=== PATIENT | female | born 2000 | race Caucasian/White ===

== ENCOUNTER 2022-07-23 12:06 | Emergency (ER) | payer MEDICAID ==
[~2022-07-23] VITALS: Ht 170 cm; Wt 91.0 kg
[2022-07-23] MEDS ORDERED: KETOROLAC 60 MG/2 ML VIAL IM ONE (12:30)
[2022-07-23] MEDS ORDERED: CYCL10TA25 PO (12:31)
--- NOTE | 2022-07-23 12:32 | ED Hip Pain/Injury ---
General Chief Complaint: Hip/Pelvic Problems Stated Complaint: LEFT SIDE LEG AND HIP PAIN Source: patient Exam Limitations: no limitations History of Present Illness Date Seen by Provider: Jul 23, 2022 Time Seen by Provider: 12:15 Initial Comments 21-year-old female presents for left low back pain. She states symptoms present for about a week to week and a half. No known injury. No new weakness numbness or tingling. No loss of bowel or bladder control. Allergies and Home Medications Allergies Coded Allergies: No Known Drug Allergies (Unverified , 07/23/22) Patient Home Medication List Home Medication List Reviewed: Yes Cyclobenzaprine HCl (Cyclobenzaprine HCl) 10 Mg Tablet, 10 MG PO Q6H PRN for SPASMS Prescribed by: LATASHA TALBERT MD on 07/23/22 1231 Review of Systems Constitutional: no symptoms reported EENTM: no symptoms reported Respiratory: no symptoms reported Cardiovascular: no symptoms reported Gastrointestinal: no symptoms reported Genitourinary: no symptoms reported Musculoskeletal: back pain Past Zmarxgg-Qspfsm-Uuglhu Hx Patient Social History Tobacco Use?: No Use of E-Cig and/or Vaping dev: No Substance use?: No Alcohol Use?: No Family Medical History No Pertinent Family Hx Physical Exam Vital Signs Vital Signs - First Documented 07/23/22 12:16 Temp 37.0 Pulse 71 Resp 18 B/P (MAP) 124/72 (89) Pulse Ox 97 O2 Delivery Room Air Capillary Refill : Height, Weight, BMI Height: '" Weight: lbs. oz. kg; BMI Method: General Appearance: No Apparent Distress HEENT: Normal ENT Inspection, Pharynx Normal Neck: Normal Inspection, Non Tender, Supple Cardiovascular: Regular Rate, Rhythm, No Edema, No Gallop, No JVD, No Murmur, Normal Peripheral Pulses Respiratory: Chest Non Tender, Lungs Clear, Normal Breath Sounds, No Accessory Muscle Use, No Respiratory Distress Gastrointestinal: Normal Bowel Sounds, No Organomegaly, No Pulsatile Mass, Non Tender Back: No CVA Tenderness, No Vertebral Tenderness, Other (Mild tenderness left SI joint region creatinine levels show no evidence of renal dysfunction. Rashes) Extremity: Normal Capillary Refill, Normal Inspection, Normal Range of Motion, Non Tender, No Pedal Edema Neurologic/Psychiatric: Alert, Oriented x3, No Motor/Sensory Deficits, Normal Mood/Affect Progress/Results/Core Measures Results/Orders My Orders Orders - LATASHA TALBERT DO Ketorolac Injection (Toradol Injection) (07/23/22 12:30) Vital Signs/I&O 07/23/22 07/23/22 07/23/22 12:16 12:35 12:52 Temp 37.0 37.0 37.0 Pulse 71 71 Resp 18 18 B/P (MAP) 124/72 (89) 124/72 Pulse Ox 97 97 O2 Delivery Room Air Room Air Departure Communication (Admissions) Patient is hemodynamically stable without any red flag symptoms that require imaging at this time. She will be treated conservatively with anti-inflammatory medicines, muscle relaxers and stretching exercises. Questions were sought and answered. She is comfortable agreeable current plan of care. Advised return to care if she develops any weakness in the legs, loss of bowel bladder control Impression Primary Impression: Acute left-sided low back pain Qualified Codes: M54.42 - Lumbago with sciatica, left side Disposition: 01 HOME, SELF-CARE Condition: Stable Departure-Patient Inst. Referrals: NO,LOCAL PHYSICIAN (PCP) Primary Care Physician PETE HERNANDEZ MD Patient Instructions: Low Back Pain ED Add. Discharge Instructions: You were seen in the emergency department today for low back pain. I do not think that there is any emergent cause of your pain at this time. I recommend you use anti-inflammatory medicine such as Motrin or Aleve. I also provided you with muscle relaxer medicine. This will make you drowsy) best to take this in the evening we do not have anything else to do. Perform stretching exercises daily racquetball or tennis ball as discussed in the emergency department. As discussed this will likely take another couple of weeks to fully resolve however I expect that you would get gradually better day by day. Return to the emergency department for any severe concerns. All discharge instructions reviewed with patient and/or family. Voiced understanding. Scripts Cyclobenzaprine HCl (Cyclobenzaprine HCl) 10 Mg Tablet 10 MG PO Q6H PRN for SPASMS for 7 Days, #28 TAB Prov: ALDA TALBERTALECIA Pisano DO 07/23/22 MACARENA TALBERTWaqar Pisano DO Jul 23, 2022 12:32
[2022-07-23 12:52] VITALS: BP 124/72
== END 2022-07-23 12:51 | disposition home or self-care (01) ==
LOC: ER 12:13
DX: M54.50 Low back pain, unspecified (principal)
CPT/HCPCS: 99284

== ENCOUNTER 2022-08-11 11:14 | Emergency (ER) | payer MEDICAID ==
[~2022-08-11] VITALS: Ht 170 cm; Wt 89.0 kg
[~2022-08-11 11:14] MED LIST: CYCL10TA25 PO
--- NOTE | 2022-08-11 11:48 | ED Abdominal Pain ---
General Chief Complaint: Abdominal/GI Problems Stated Complaint: LEFT HIP/LOWER ABD PAIN Nursing Triage Note: ARRIVED VIA AMBULATORY TO ROOM 07. STATES LAST WEEK SHE WAS TREATED FOR CHLAMTDIA BUT HAD SEX WITH THE SAME UNTREATED PARTNER YESTERDAY. SINCE THEN SHE HAS HAD RLQ PAIN. ALSO COMPLAINS OF CHRONIC LEFT HIP PAIN THAT SHE WOULD LIKE A MUSCLE RELAXER FOR AND SHE NEEDS A WORK NOTE. (MARGARET FRYE APRN) History of Present Illness Date Seen by Provider: Aug 11, 2022 Time Seen by Provider: 11:48 Initial Comments Patient reports that she is having lower abdominal pain for the past few days but worse today. Was seen elsewhere last week to be started on control and was told that she was positive for chlamydia. Was not having symptoms at that time. States that she was just trying to get on control. Had sex yesterday with the man who is positive for chlamydia and has not been treated for it. Sex was not protected. Denies vaginal discharge or symptoms currently. Also reports that she has been having some left hip pain for awhile and is requesting muscle relaxers for that. Also asking for a work note. Denies fever, nausea, vomiting or diarrhea. Is taking over the counter medications at home with mild imp rovement of symptoms. Timing/Duration: 2-3 Days Severity/Quality: Moderate Location: Generalized Abdomen Radiation: Shoulder (right) Activities at Onset: None Modifying Factors: Improves With Analgesics; Worsens With Lying down, Worsens With Movement, Worsens With Palpation; Improves With Other (sitting up improves the symptoms) (MARGARET FRYE APRN) Allergies and Home Medications Allergies Coded Allergies: No Known Drug Allergies (Unverified , 07/23/22) Patient Home Medication List Home Medication List Reviewed: Yes (MARGARET FRYE APRN) Cyclobenzaprine HCl (Cyclobenzaprine HCl) 10 Mg Tablet, 10 MG PO Q6H PRN for SPA SMS Prescribed by: LATASHA TALBERT MD on 07/23/22 1231 Doxycycline Hyclate (Doxycycline Hyclate) 100 Mg Tablet, 100 MG PO BID Prescribed by: Margaret Frye on 08/11/22 1646 Review of Systems Review of Systems Constitutional: No chills, No dizziness, No fever Cardiovascular: Denies Chest Pain, Denies Lightheadedness, Denies Palpitations Gastrointestinal: Abdominal Pain; Denies Constipated, Denies Diarrhea; Nausea; Denies Vomiting Genitourinary: Denies Burning, Denies Discharge, Denies Frequency, Denies Flank Pain, Denies Pain Musculoskeletal: other (left hip) Skin: no symptoms reported (MARGARET FRYE APRN) All Other Systems Reviewed Negative Unless Noted: Yes (MARGARET FRYE APRN) Past [place]-Tnpkxy-Hrcosn Hx Patient Social History Smoking Status: Current Everyday Smoker Substance use?: No Alcohol Use?: No (MARGARET FRYE APRN) Immunizations Up To Date Second COVID19 Vaccination Jairon: UNKNOWN COVID19 Vaccine Form Builder: UNKNOWN (MARGARET FRYE APRN) Past Medical History Last Menstrual Period: Jul 16, 2022 (MARGARET FRYE APRN) Family Medical History Reviewed Nursing Family Hx (MARGARET FRYE APRN) No Pertinent Family Hx (MARGARET FRYE APRN) Physical Exam Vital Signs Vital Signs - First Documented 08/11/22 11:35 Temp 36.0 Pulse 105 Resp 16 B/P (MAP) 132/72 (92) Pulse Ox 97 O2 Delivery Room Air (NETTA FERREIRA MD) Vital Signs Capillary Refill : (MARGARET FRYE APRN) Height/Weight/BMI Height: '" Weight: lbs. oz. kg; 30.00 BMI Method: General Appearance: WD/WN, no apparent distress Neck: non-tender, full range of motion, supple, normal inspection Respiratory: chest non-tender, lungs clear, normal breath sounds, no respiratory distress, no accessory muscle use Cardiovascular: regular rate, rhythm, no edema Gastrointestinal: soft, guarding (lower abdomen right and left), tenderness (generalized abdomen but worse in lower quadrants) Extremities: normal range of motion, non-tender, normal inspection Back: normal inspection, no CVA tenderness Neurologic/Psychiatric: alert, normal mood/affect, oriented x 3 Skin: normal color, warm/dry (MARGARET FRYE APRN) Progress/Results/Core Measures Results/Orders Lab Results Laboratory Tests Test 08/11/22 12:06 08/11/22 12:50 Range/Units White Blood Count 11.6 H 4.3-11.0 10^3/uL Red Blood Count 4.64 3.80-5.11 10^6/uL Hemoglobin 12.6 11.5-16.0 g/dL Hematocrit 39 35-52 % Mean Corpuscular Volume 83 80-99 fL Mean Corpuscular Hemoglobin 27 25-34 pg Mean Corpuscular Hemoglobin Concent 33 32-36 g/dL Red Cell Distribution Width 13.8 10.0-14.5 % Platelet Count 352 130-400 10^3/uL Mean Platelet Volume 10.2 9.0-12.2 fL Immature Granulocyte % (Auto) 0 % Neutrophils (%) (Auto) 71 42-75 % Lymphocytes (%) (Auto) 22 12-44 % Monocytes (%) (Auto) 4 0-12 % Eosinophils (%) (Auto) 2 0-10 % Basophils (%) (Auto) 0 0-10 % Neutrophils # (Auto) 8.2 H 1.8-7.8 10^3/uL Lymphocytes # (Auto) 2.6 1.0-4.0 10^3/uL Monocytes # (Auto) 0.5 0.0-1.0 10^3/uL Eosinophils # (Auto) 0.3 0.0-0.3 10^3/uL Basophils # (Auto) 0.0 0.0-0.1 10^3/uL Immature Granulocyte # (Auto) 0.0 0.0-0.1 10^3/uL Sodium Level 138 135-145 MMOL/L Potassium Level 4.3 3.6-5.0 MMOL/L Chloride Level 107 98-107 MMOL/L Carbon Dioxide Level 19 L 21-32 MMOL/L Anion Gap 12 5-14 MMOL/L Blood Urea Nitrogen 7 7-18 MG/DL Creatinine 0.83 0.60-1.30 MG/DL Estimat Glomerular Filtration Rate 104 BUN/Creatinine Ratio 8 Glucose Level 97 70-105 MG/DL Calcium Level 9.3 8.5-10.1 MG/DL Corrected Calcium 9.1 8.5-10.1 MG/DL Total Bilirubin 0.8 0.1-1.0 MG/DL Aspartate Amino Transf (AST/SGOT) 17 5-34 U/L Alanine Aminotransferase (ALT/SGPT) 14 0-55 U/L Alkaline Phosphatase 60 40-136 U/L Total Protein 7.3 6.4-8.2 GM/DL Albumin 4.3 3.2-4.5 GM/DL Lipase 12 8-78 U/L Serum Test, Qualitative NEGATIVE NEGATIVE Urine Color YELLOW Urine Clarity CLEAR Urine pH 7.0 5-9 Urine Specific [place] 1.015 L 1.016-1.022 Urine Protein NEGATIVE NEGATIVE Urine Glucose (UA) NEGATIVE NEGATIVE Urine Ketones NEGATIVE NEGATIVE Urine Nitrite NEGATIVE NEGATIVE Urine Bilirubin NEGATIVE NEGATIVE Urine Urobilinogen 0.2 < = 1.0 MG/DL Urine Leukocyte Esterase TRACE H NEGATIVE Urine RBC (Auto) TRACE-I H NEGATIVE Urine RBC RARE /HPF Urine WBC 2-5 /HPF Urine Squamous Epithelial Cells 2-5 /HPF Urine Crystals NONE /LPF Urine Bacteria NEGATIVE /HPF Urine Casts NONE /LPF Urine Mucus NEGATIVE /LPF Urine Culture Indicated NO (NETTA FERREIRA MD) Medications Given in ED Current Medications Medications Dose Ordered Sig/Rukhsana Route Start Time Stop Time Status Last Admin Dose Admin Iohexol 100 ml ONCE ONCE IV 08/11/22 12:15 08/11/22 12:16 DC 08/11/22 12:45 80 ML Ketorolac Tromethamine 30 mg ONCE ONCE IVP 08/11/22 12:00 08/11/22 12:01 DC 08/11/22 12:04 30 MG Sodium Chloride 100 ml ONCE ONCE IV 08/11/22 12:15 08/11/22 12:16 DC 08/11/22 12:45 80 ML (NETTA FERREIRA MD) Vital Signs/I&O 08/11/22 11:35 Temp 36.0 Pulse 105 Resp 16 B/P (MAP) 132/72 (92) Pulse Ox 97 O2 Delivery Room Air (NETTA FERREIRA MD) Blood Pressure Mean: 92 Progress Progress Note : Progress Note 1340: Spoke to patient in regards to labs and CT scan. Reviewed CT scan with Dr. Ferreira and will order ultrasound and have them come in to rule out pelvic abscess. 1640: Reviewed ultrasound results with Dr. Ferreira. Will go ahead and treat with Doxycycline for 10 days which would cover PID and chlamydia. Instructed on the importance of not continuing to have sex with the partner that has chlamydia and has not been treated. Home treatments reviewed with patient along with reasons to return to the ER. I also spoke to patient's mother per her request via facetime and answered her questions. (MAGO FRYEMadonna Padilla APRN) Progress Note : Time: 14:48 Progress Note SCRUB TECH Thanh requested my assistance in the evaluation, care and management of this 21-year-old female with severe lower abdominal pain. Patient states that she had onset of pain last night that is sharp, diffuse in the lower abdomen, radiating up the right side and into the right shoulder. She has a past medical history significant for treatment 7 days ago for chlamydia and her primary care doctor's office. She had undergone routine screening for sexually transmitted infection with an evaluation to start control the week prior. She was notified that she had the infection and took a one-time dose of medication. She had been well, no dysuria, urgency frequency. No abnormal vaginal discharge. She does admit to unprotected sex with a partner of 1 year. No fevers or chills. She has also had left hip and back pain for the last couple of months that she has seen her primary care provider for as well as a chiropractor. She has been taking NSAIDs without relief. Last night at the onset of the pain she went to bed and woke up with worsening pain. She was unable to lay on her right side due to exacerbation of the pain. Mildly nauseated. Movement makes the pain worse, laying supine makes the pain worse, sitting forward at 90 degrees makes her feel little bit better. Prior to my evaluation the patient had had some Toradol which offered minimal relief of her symptoms. Physical exam pertinent for relatively well-appearing 21-year-old female, slightly tachycardic. Normal blood pressure. Abdominal exam, nondistended, soft, involuntary guarding throughout the lower abdomen. Hypoactive bowel sounds. Rebound tenderness is noted. She is even moderately tender in the epigastrium and left upper quadrant more so in the right upper quadrant. Labs show mild leukocytosis, normal hemoglobin of 12, normal chemistry, negative serum test. CT scan of the abdomen and pelvis showed moderate high density fluid in the pe lvic region radiating into the paracolic gutters bilaterally concerning for debris versus hemorrhage. No definitive drainable abscess was identified. In light of the above findings it was decided to order an ultrasound to further characterize the fluid and potential abscess versus torsion versus other acute pathology. Ultrasound callback guidelines were consulted (guideline state r/o ovarian torsion only) - however I felt like this decision to order a pelvic ultrasound was warranted due to the potential for sepsis, worsening clinical picture, emergent surgical need. patient is to U/S at this time (NETTA FERREIRA MD) Diagnostic Imaging Diagonstic Imaging: CT Plain Films/CT/US/NM/MRI: abdomen, pelvis Comments NAME: [facility] REC#: [id number] PT STATUS: REG ER : 2000 PHYSICIAN: MARGARET FRYE APRN ADMIT DATE: 08/11/22/ER Draft Date of Exam:08/11/22 CT ABDOMEN/PELVIS W PROCEDURE: CT abdomen and pelvis with contrast. TECHNIQUE: Multiple contiguous axial images were obtained through the abdomen and pelvis after administration of intravenous contrast. Auto Exposure Controls were utilized during the CT exam to meet ALARA standards for radiation dose reduction. All CT scans use one or more of the following dose optimizing techniques: automated exposure control, MA and/or KvP adjustment based on patient size and exam type or iterative reconstruction. INDICATION: 21-year-old female, recent history of chlamydia, post treatment, right lower quadrant pain. Chronic left hip pain. CORRELATION STUDY: None. FINDINGS: LOWER THORAX: Clear. LIVER: Likely mild asymmetric fatty infiltration of the left hepatic lobe. GALLBLADDER: Present and unremarkable. No bile duct dilatation. SPLEEN: Unremarkable. PANCREAS: Unremarkable. ADRENAL GLANDS: Unremarkable. KIDNEYS: Scattered areas of high density within the collecting system, may be reflective of early contrast clearance. Small calcifications would go undetected. No obstruction. ABDOMINAL AORTA: Unremarkable, nonaneurysmal. GASTROINTESTINAL TRACT: No definitive gastrointestinal tract obstruction. Small amount of fluid along the paracolic gutters. The appendix is not well visualized, may be along the track of the fluid. Definitive abnormal appendix however is not suggested. URINARY BLADDER: Relatively decompressed. REPRODUCTIVE: There is moderate amount of high-density pelvic fluid, particularly in the pelvic cul-de-sac extending to bilateral adnexa along the paracolic gutters. This is of greater density than simple fluid, may be reflective of debris versus hemorrhage. 17 mm curvilinear area of enhancement in the left adnexa could be reflective of collapsing ovarian cyst. There is no definitive drainable abscess. OSSEOUS STRUCTURES: No acute abnormality. OTHER: None. IMPRESSION: 1. Moderate amount of high-density pelvic fluid. This is of greater density than simple fluid. This could be reflective of perhaps a hemoperitoneum with ruptured ovarian cyst or underlying infectious etiology given the provided history. A definitive drainable abscess is not demonstrated. Question of potential corpus luteal cyst or perhaps developing abscess in the left adnexa/ovary is not excluded. If further assessment is desired, pelvic ultrasound imaging may be of additional diagnostic utility. The fluid does extend along the paracolic gutters. Dictated on workstation # [id number] Dict: 08/11/22 1300 Trans: 08/11/22 1315 [id number] Interpreted by: MANFRED KHOURY DO Electronically signed by: (MARGARET FRYE APRN) Departure Impression Primary Impression: Hemorrhagic cyst of left ovary Disposition: HOME, SELF-CARE Condition: Stable Departure-Patient Inst. Decision time for Depature: 16:44 (MARGARET FRYE APRN) Referrals: [facility] [place] (PCP) Primary Care Physician JAISON NATARAJAN APRN (Family) Primary Care Physician Patient Instructions: Ovarian Cysts Add. Discharge Instructions: 1. Home and rest. 2. Push fluids. 3. Alternate Tylenol/Ibuprofen as needed for pain. 4. Follow up with PCP this week. 5. Start Doxycycline and take as directed until finished. 6. Safe sex practices. Quit sleeping with your boyfriend until he has been treated for STDs. 7. Return here if worse or concerns. All discharge instructions reviewed with patient and/or family. Voiced understanding. Scripts Doxycycline Hyclate (Doxycycline Hyclate) 100 Mg Tablet 100 MG PO BID for 10 Days, #20 TAB 0 Refills Prov: MARGARET RFYE APRN 08/11/22 Work/School Note: Work Release Form Date Seen in the Emergency Department: Aug 11, 2022 Return to Work: Aug 12, 2022 Restrictions: No Restrictions MARGARET FRYE APRN Aug 11, 2022 11:48 NETTA FERREIRA MD Aug 11, 2022 14:53
[2022-08-11] MEDS ORDERED: NS IV 1000 ML 1,000 ML IV SCH (12:00)
[2022-08-11] MEDS ORDERED: KETOROLAC 30 MG/ML VIAL IVP ONE (12:00)
[2022-08-11 12:13] LABS: BASOPHILS % (AUTO) 0 % (0-10); EOSINOPHILS # (AUTO) 0.3 10^3/uL (0.0-0.3); EOSINOPHILS % (AUTO) 2 % (0-10); HEMATOCRIT 39 % (35-52); HEMOGLOBIN 12.6 g/dL (11.5-16.0); LYMPHOCYTES # (AUTO) 2.6 10^3/uL (1.0-4.0); LYMPHOCYTES % (AUTO) 22 % (12-44); MEAN CORPUSCULAR HEMOGLOBIN 27 pg (25-34); MEAN CORPUSCULAR HGB CONC 33 g/dL (32-36); MEAN CORPUSCULAR VOLUME 83 fL (80-99); MEAN PLATELET VOLUME 10.2 fL (9.0-12.2); MONOCYTES # (AUTO) 0.5 10^3/uL (0.0-1.0); MONOCYTES % (AUTO) 4 % (0-12); NEUTROPHILS # (AUTO) 8.2 10^3/uL (1.8-7.8); NEUTROPHILS % (AUTO) 71 % (42-75); PLATELET COUNT 352 10^3/uL (130-400); WHITE BLOOD COUNT 11.6 10^3/uL (4.3-11.0)
[2022-08-11] MEDS ORDERED: HOLD METFORMIN - RECEIVED CONTRAST 20 ML VIAL IV SCH (12:15)
[2022-08-11] MEDS ORDERED: IOHEXOL 350 MG/ML 100 ML (OMNIPAQUE 350) VIAL IV ONE (12:15)
[2022-08-11] MEDS ORDERED: NS 100 ML (IVPB) BAG IV ONE (12:15)
[2022-08-11 12:28] LABS: ALBUMIN 4.3 GM/DL (3.2-4.5)
[2022-08-11 12:29] LABS: POTASSIUM 4.3 MMOL/L (3.6-5.0)
[2022-08-11 12:30] LABS: CALCIUM 9.3 MG/DL (8.5-10.1)
[2022-08-11 12:31] LABS: TOTAL PROTEIN 7.3 GM/DL (6.4-8.2)
[2022-08-11 12:33] LABS: BILIRUBIN,TOTAL 0.8 MG/DL (0.1-1.0)
[2022-08-11 12:35] LABS: CREATININE SERUM 0.83 MG/DL (0.60-1.30)
[2022-08-11 13:01] LABS: BILIRUBIN,URINE NEGATIVE (NEGATIVE); CLARITY,URINE CLEAR; COLOR,URINE YELLOW; GLUCOSE, URINE (UA) NEGATIVE (NEGATIVE); KETONES,URINE NEGATIVE (NEGATIVE); LEUKOCYTE ESTERASE ,URINE TRACE (NEGATIVE); NITRITE,URINE NEGATIVE (NEGATIVE); PROTEIN,URINE NEGATIVE (NEGATIVE)
[2022-08-11 13:11] LABS: RBC,URINE RARE /HPF
[2022-08-11 13:12] LABS: BACTERIA,URINE NEGATIVE /HPF
--- NOTE | 2022-08-11 13:16 | Diagnostic Imaging Report ---
PROCEDURE: CT abdomen and pelvis with contrast. TECHNIQUE: Multiple contiguous axial images were obtained through the abdomen and pelvis after administration of intravenous contrast. Auto Exposure Controls were utilized during the CT exam to meet ALARA standards for radiation dose reduction. All CT scans use one or more of the following dose optimizing techniques: automated exposure control, MA and/or KvP adjustment based on patient size and exam type or iterative reconstruction. INDICATION: 21-year-old female, recent history of chlamydia, post treatment, right lower quadrant pain. Chronic left hip pain. CORRELATION STUDY: None. FINDINGS: LOWER THORAX: Clear. LIVER: Likely mild asymmetric fatty infiltration of the left hepatic lobe. GALLBLADDER: Present and unremarkable. No bile duct dilatation. SPLEEN: Unremarkable. PANCREAS: Unremarkable. ADRENAL GLANDS: Unremarkable. KIDNEYS: Scattered areas of high density within the collecting system, may be reflective of early contrast clearance. Small calcifications would go undetected. No obstruction. ABDOMINAL AORTA: Unremarkable, nonaneurysmal. GASTROINTESTINAL TRACT: No definitive gastrointestinal tract obstruction. Small amount of fluid along the paracolic gutters. The appendix is not well visualized, may be along the track of the fluid. Definitive abnormal appendix however is not suggested. URINARY BLADDER: Relatively decompressed. REPRODUCTIVE: There is moderate amount of high-density pelvic fluid, particularly in the pelvic cul-de-sac extending to bilateral adnexa along the paracolic gutters. This is of greater density than simple fluid, may be reflective of debris versus hemorrhage. 17 mm curvilinear area of enhancement in the left adnexa could be reflective of collapsing ovarian cyst. There is no definitive drainable abscess. OSSEOUS STRUCTURES: No acute abnormality. OTHER: None. IMPRESSION: 1. Moderate amount of high-density pelvic fluid. This is of greater density than simple fluid. This could be reflective of perhaps a hemoperitoneum with ruptured ovarian cyst or underlying infectious etiology given the provided history. A definitive drainable abscess is not demonstrated. Question of potential corpus luteal cyst or perhaps developing abscess in the left adnexa/ovary is not excluded. If further assessment is desired, pelvic ultrasound imaging may be of additional diagnostic utility. The fluid does extend along the paracolic gutters. Dictated by: Dictated on workstation # [id number]
[2022-08-11] MEDS ORDERED: fentaNYL INJ 100 MCG/2 ML AMP IVP ONE (14:45)
[2022-08-11] MEDS ORDERED: fentaNYL INJ 100 MCG/2 ML AMP ONE (14:46)
--- NOTE | 2022-08-11 16:35 | Diagnostic Imaging Report ---
PROCEDURE: US non-OB pelvis comp/trans. TECHNIQUE: Multiple realtime grayscale images were obtained of the pelvis in various projections, endovaginally. Transabdominal imaging was also performed. INDICATION: Abdominal pain, possible pelvic abscess. COMPARISON: CT from 08/11/2022. FINDINGS: The uterus is normal in size measuring 7.9 x 3.9 x 5.1 cm. The endometrium is at the upper limit of normal in thickness for a premenopausal female in the secretory phase measuring 1.6 cm. The right ovary measures 3.4 x 2.0 x 3.0 cm and the left measures 4.1 x 2.6 x 3.5 cm. There is blood flow in the ovaries, bilaterally. There is a small amount of free fluid. The fluid appears echogenic, may represent blood products. There is a complex cystic structure at the left ovary measuring about 1.5 cm. IMPRESSION: Complex cystic structure in the left ovary, may represent an involuting or hemorrhagic cyst. Small amount of free fluid is echogenic, and likely represents blood products. Dictated by: Dictated on workstation # [id number]
[2022-08-11] MEDS ORDERED: DOXYCYCLINE 100 MG (VIBRAMYCIN) TABLET PO SCH (16:45)
[2022-08-11] MEDS ORDERED: DOXY100T2 PO (16:46)
[2022-08-11 16:55] VITALS: BP 132/83
== END 2022-08-11 16:55 | disposition home or self-care (01) ==
LOC: EDUNIT# 11:14 → ER 11:18
DX: N83.202 Unspecified ovarian cyst, left side (principal); F17.200 Nicotine dependence, unspecified, uncomplicated
CPT/HCPCS: 36415; 74177; 76830; 76856; 80053; 81000; 83690; 84703; 85025; 86141; 87491; 87591